=== PATIENT | female | born 1955 | race Hispanic/Latino ===

== ENCOUNTER 2021-11-02 08:34 | Outpatient (CLI) | payer OTHER | END 2021-11-02 08:35 | disposition home or self-care (01) | LOC: CSHMAMMO 08:34 | PROVIDERS: ATTEND Family Medicine | DX: Z13.820 Encounter for screening for osteoporosis (principal); M81.0 Age-related osteoporosis without current pathological fracture; Z96.641 Presence of right artificial hip joint; Z96.651 Presence of right artificial knee joint; Z96.661 Presence of right artificial ankle joint | CPT/HCPCS: 77080 ==